=== PATIENT | female | born 1950 | race Caucasian/White ===

== ENCOUNTER 2017-01-29 14:00 | Inpatient (IN) | payer MEDICARE, BC ==
[~2017-01-29] VITALS: Ht 167.6 cm; Wt 75.2 kg
--- NOTE | ~2017-01-29 | DS ---
PATIENT'S NAME: AMBAR KIDD [facility] AGE: 66 Y [address] ROOM: [place] [address] LOCATION: G3N ADMIT DATE: 02/04/2017 Discharge Summary DISCHARGE DATE: 02/06/2017 FAMILY PHYSICIAN: Florencio Herrera MD ATTENDING PHYSICIAN: Fabian Mcpherson PRIMARY DIAGNOSIS: Degenerative joint disease of the right knee. SECONDARY DIAGNOSES: 1. Hypertension. 2. History of idiopathic peripheral neuropathy. 3. History of malignant hypertensive heart and kidney disease. 4. Osteoporosis. 5. Hypercholesterolemia. PROCEDURE PERFORMED: Right total knee arthroplasty with computer navigation. HISTORY: The patient is a 66-year-old female, who presents with advanced right knee degenerative joint disease and associated severely compromised activities of daily living. The patient has decided to proceed with total knee arthroplasty after having been thoroughly counseled regarding the risks, benefits, limitations and alternatives. Please refer to the outpatient clinic notes and admission history and physical for this patient. HOSPITAL COURSE: The patient underwent a right total knee arthroplasty on 02/04/2017 without complications. Spinal anesthesia plus adductor canal block plus periarticular local anesthesia was utilized. The patient received 24 hours of perioperative prophylactic antibiotics and remained hemodynamically stable, neurovascularly intact throughout the entire hospital course. He postoperative prophylactic deep venous thrombosis prophylaxis consisted of Xarelto, early mobilization and pneumatic compression devices. Daily physical therapy for gait training, transfer training range of motion and quadriceps isometric exercises were received. The patient progressed well in physical therapy. On the date of discharge, 02/06/2017, the incision at the knee was healing well and showed no signs of infection. DISPOSITION: Home. DISCHARGE ACTIVITY: The patient is to bear weight as tolerated with range of motion and quadriceps isometric exercises as instructed. The operative extremity is to be elevated at least 90% of the day. There is to be sterile 4x4 gauze dressings to the incision daily. Dr. Mcpherson is to be notified immediately if there is any increased pain, fevers, chills erythema or drainage. PATIENT'S NAME: AMBAR KIDD [facility] AGE: 66 Y [address] ROOM: [place] [address] LOCATION: G3N ADMIT DATE: 02/04/2017 Discharge Summary DISCHARGE DATE: 02/06/2017 FAMILY PHYSICIAN: Florencio Herrera MD ATTENDING PHYSICIAN: Fabian Mcpherson DISCHARGE MEDICATIONS: 1. Xarelto 10 mg, take tab p.o. daily for DVT prevention. 2. Oxycodone 5, take 1-2 tablets every 4 hours as needed for pain. 3. Celebrex 200 mg, take 1 tab p.o. p.r.n. pain. FOLLOWUP: Followup appointment is to be with Dr. Mcpherson on Friday February 12, 2016, for initial postoperative evaluation. EMILE CORDON FOR FABIAN MCPHERSON MD TLB/modl /[id number] d: 02/13/17 0339 t: 02/18/17 0926, DISCHARGE SUMMARY
--- NOTE | ~2017-01-29 | OR ---
PATIENT'S NAME: AMBAR KIDD [facility] AGE: 66 Y [address] ROOM: [place] [address] LOCATION: [facility] ADMIT DATE: 02/04/2017 OR/Procedure Report DISCHARGE DATE: FAMILY PHYSICIAN: Florencio Herrera MD ATTENDING PHYSICIAN: FABIAN MCPHERSON SURGEON: Fabian Mcpherson MD SERVICE STATION ATTENDANT: 1. EMLIE Saldivar. 2. Ede Savage CST/JOSE. DATE OF PROCEDURE: 02/04/2017 PRE-OP DIAGNOSIS: Degenerative joint disease right knee. POST-OP DIAGNOSIS: Degenerative joint disease right knee. OPERATION: Right total knee arthroplasty with computer navigation. ANESTHESIA: Spinal anesthesia plus adductor canal block plus periarticular local anesthesia (ropivacaine with epinephrine and Toradol). ESTIMATED BLOOD LOSS: Less than 10 mL. DRAIN: None. SPECIMEN: None. COMPLICATIONS: None. IMPLANT SYSTEM: Darlyn Triathlon Size 5 right posterior stabilized femoral component Size 4 universal modular tibial baseplate 11 mm posterior stabilized size 4 X3 tibial polyethylene insert 32 mm Oval X3 patella component (triple pegged). INDICATIONS FOR SURGERY: The patient is a 66-year-old female who presents with advanced right knee degenerative joint disease and associated severely compromised activities of daily living. The patient has decided to proceed with knee replacement after having been thoroughly counseled regarding the associated risks, benefits, and limitations. We have specifically reviewed the risks and implications of infection, deep venous thrombosis, pulmonary embolism, mortality, neurovascular complications, blood transfusion (and associated potential for disease transmission or transfusion reaction), stiffness, instability, mechanical deterioration of the components (due to wear and or loosening), and the potential need for revision. We have also emphasized the importance of active involvement and compliance with post- operative physical therapy as a means of optimizing range of motion and [facility]GE: 66 Y [address] ROOM: [address] [address] LOCATION: [facility] ADMIT DATE: 02/04/2017 OR/Procedure Report DISCHARGE DATE: FAMILY PHYSICIAN: Florencio Herrera MD ATTENDING PHYSICIAN: FABIAN MCPHERSON functional recovery. Informed consent has been granted. DESCRIPTION OF PROCEDURE: The patient was positioned supine after administration of anesthesia and prophylactic antibiotics. A well-padded pneumatic tourniquet was placed around the right proximal thigh, and the right lower extremity was prepped and draped with vigilant sterile technique. The patient's name as well as the intended operative side and procedure were confirmed with a verbal time-out involving myself, the circulating nurse, the scrub nurse, and the anesthesiologist. Examination under anesthesia demonstrated a large effusion. There were no active skin lesions or masses. There was no erythema. There was no abnormal warmth. Range of motion under anesthesia was from a 20-degree flexion contracture to 120 degrees of flexion. There was no ligamentous insufficiency. The right lower extremity was elevated and exsanguinated with an Esmarch wrap, and the pneumatic tourniquet was inflated to 300mmHg. The knee was approached through a longitudinal midline incision. A medial parapatellar arthrotomy was performed and the patella was everted. Examination of the joint space demonstrated a large amount of benign-appearing translucent synovial fluid. There was no synovitis. There were no loose bodies. There was a small osteophyte at the intercondylar notch. The cruciate ligaments were intact. There was full-thickness loss of articular cartilage involving 95% of the medial femoral condyle and the anteromedial 2/3rd of the medial tibial plateau. There was a 1 cm diameter region of full-thickness articular cartilage loss (with an associated unstable full-thickness flap of articular cartilage) at the central aspect of the lateral femoral condyle. There were intermixed grade 3 and grade 4 degenerative changes throughout the inferomedial 2/3rd of the patella. There were intermixed grade 3 and grade 4 degenerative changes throughout the majority of the femoral trochlea. There was a 1 cm osteophyte at the cephalad aspect of the femoral trochlea. There was a 1 x 2 cm osteophyte at the lateral margin of the patella. There were small osteophytes at the remainder of the circumference of the patella as well as at the medial and lateral margins of the femoral trochlea, lateral margin of the lateral femoral condyle, and lateral tibial plateau. There was moderate inner perimeter tearing of the medial and lateral menisci. There was a partial discoid lateral meniscus. Remnants of the menisci and cruciate ligaments were excised. The Lumate navigation femoral tracker was pinned in place at the distal aspect of the femoral trochlea. Absence of motion between the femur and the tracking device was confirmed manually and visually. Femoral osseous landmarks were obtained in order to calibrate the computer navigation system. Landmarks PATIENT'S NAME: AMBAR KIDD [facility] AGE: 66 Y [address] ROOM: [id number] [place], [place] [address] LOCATION: [facility] ADMIT DATE: 02/04/2017 OR/Procedure Report DISCHARGE DATE: FAMILY PHYSICIAN: Florencio Herrera MD ATTENDING PHYSICIAN: FABIAN MCPHERSON included the center of rotation of the ipsilateral hip, the center-point of the distal femur, the femoral AP axis, 57 points on the medial femoral condyle articular surface, and 57 points on the lateral femoral condyle articular surface. The Trailerpop computer navigation system was subsequently utilized to position the distal femoral resection block such that the distal femoral resection was performed perfectly perpendicular to the femoral mechanical axis. The distal femoral resection was performed with a [employer] oscillating saw. The Trailerpop computer navigation tibial tracker was pinned in place at the anterior aspect of the tibial plateau. Absence of motion between the tibia and the tracking device was confirmed manually and visually. Tibial osseous landmarks were obtained in order to calibrate the computer navigation system. Landmarks included the center-point of the tibial plateau, the AP tibial axis, 57 points on the medial tibial plateau articular surface, 57 points on the lateral tibial plateau articular surface, the medial malleolus, and the lateral malleolus. The Trailerpop computer navigation system was subsequently utilized to position the proximal tibial resection block such that the proximal tibial resection was performed perfectly perpendicular to the tibial mechanical axis. The proximal tibial resection was performed with a [employer]igator[employer] Precision oscillating saw. Perpendicularity of the tibial resection with respect to the tibial shaft axis was reconfirmed by inserting a spacer- block attached to an extramedullary guide tiffanie. External rotation of the anterior and posterior femoral resections was set parallel to the epicondylar axis and carefully adjusted in order to create a rectangular flexion gap. The box resection was performed with a reciprocating saw. Anterior and posterior chamfer resections were performed with the oscillating saw. Posterior condyle osteophytes were excised with an osteotome. All other osteophytes were excised with a rongeur. Resection of all remnants of the menisci was reconfirmed. Flexion and extension gaps were confirmed to be symmetric and well balanced with a spacer-block technique. The patella resection was performed with an oscillating saw such that the composite thickness of the reconstructed patella was equivalent to the thickness of the kluti kaah patella. Patella tracking was optimal and there was no need for a lateral retinacular release. All trial components were removed and all prepared osseous surfaces were thoroughly irrigated with pulsatile saline lavage and dried prior to cementing all three components in a single stage using Petty Simplex cement containing pre-mixed tobramycin. All extruded excess cement was removed. The entire joint space was thoroughly inspected and thoroughly irrigated with bacteriostatic pulsatile saline lavage to assure that there was no residual debris of any sort. PATIENT'S NAME: AMBAR KIDD [facility] AGE: 66 Y [address] ROOM: [address] [address] LOCATION: [facility] ADMIT DATE: 02/04/2017 OR/Procedure Report DISCHARGE DATE: FAMILY PHYSICIAN: Florencio Herrera MD ATTENDING PHYSICIAN: FABIAN MCPHERSON Final range of motion was from full extension (with no passive hyperextension) to 130 degrees of flexion. Patella tracking was reconfirmed to be optimal. There was excellent anteroposterior stability at 90 degrees of flexion. There was 0 mm of medial lift-off to valgus stress in full extension. There was 1 mm of lateral lift-off to varus stress in full extension. The arthrotomy was closed with multiple simple and [id number] interrupted #1 Vicryl. Subcutaneous tissues were thoroughly re-irrigated with bacteriostatic pulsatile saline lavage. Subcutaneous tissues were re- approximated with simple buried interrupted #0 Vicryl sutures. The skin was closed with simple buried interrupted 2-0 Vicryl sutures followed by surgical kirt. The dressing consisted of Xeroform gauze, 4x4 gauze, ABD pads and two 6-inch Alexandr Wraps. There were no intra-operative complications. It should be noted that the physician's client account assistant played an active, integral role throughout this entire operation. By providing expert retraction, they greatly facilitated and expedited safe and effective exposure of the distal femur, proximal tibia and patella for preparation and implantation of the components. They were also actively involved in the patient's positioning, prepping and draping, as well as wound closure. MD JESSE HOOD/modl /[id number] d: 02/04/172055 t: 02/06/172150, OPERATIVE SUMMARY
[~2017-01-29 14:00] MED LIST: AMOXICILLIN500 M1 PO; COLACE100 MG PO; CRESTOR5 MG PO; FOSAMAX70 MG PO; LOPRESSOR25 MG PO; MELOXICAM15 MG PO; MIRALAX17 GM PO; NEURONTIN300 MG PO; ROXICODONE 5MG (5 MG PO; TYLENOL EXTRA500 MG PO; VALIUM5 MG PO; XARELTO10 MG PO
[2017-01-29] MEDS ORDERED: ULTRAM50 MG PO (16:28)
--- NOTE | 2017-02-05 04:18 | NUR ---
Significant Event: 1 ASSIST WITH TRANSFERS. VOIDS WITHOUT DIFFICULTY. DRESSING IS CLEAN, DRY AND INTACT. CSM WNL. OXYCODONE AT 0235. Follow up:
--- NOTE | 2017-02-05 12:30 | NUR ---
Introduced self/role to patient. She lives with her in [place]. Has all her DME from previous surgery. will be there to help and a daughter is coming. Denied any barriers to go home or at home. She is planning to go home tomorrow. Added my name to her marker board.
--- NOTE | 2017-02-05 17:10 | NUR ---
Significant Event: SHANE DRESSING TO R) KNEE C/D/I. CSM ASSESSMENTS WNL. EZ WRAP TO R) KNEE. AMBULATES TO BATHROOM AND UP TO CHAIR WITH SBA, USE OF WALKER/GAIT BELT, GAIT STEADY. BILATERAL KNEE HIGH RASHIDA HOSE AND FOOT PUMPS ON. PATIENT VOIDING APPROXIMATELY 100ML AT A TIME, ORDER RECEIVED FOR PVR, AT 1320 PATIENT VOIDED 100ML, PVR 473ML, THEN VOIDED ANOTHER 100ML. AT 1500 PATIENT VOIDED 100ML, PVR 367ML, Christiana PASTRANA CUSTOMER RESPONSE REPRESENTATIVE INFORMED AND ORDER RECEIVED TO STRAIGHT CATH. 1600 PATIENT STRAIGHT CATH FOR 500ML. PAIN WELL CONTROLLED WITH OXYCODONE 1 TAB GIVEN LAST AT 1617 AND ROUTINE TYLENOL EXTRA STRENGTH WHICH WILL BE GIVEN AROUND 1730. ZOFRAN GIVEN AT 0950 FOR C/O NAUSEA, WITH RELIEF. PLEASANT AND COOPERATIVE WITH CARES. Follow up:
--- NOTE | 2017-02-06 04:49 | NUR ---
Significant Event: Alert/oriented x3. Plans to go home today. # voids - 725 mls. 1 assist ambulation. Pain controlled with Roxicodone at 2152 and 0130; Morphine 1 mg IVP at 0338; Toradol at 0338. VSS. CSM WNL. Dressing C/D/I. EZ wrap in place. Teds removed HS. Follow up:
[2017-02-06] MEDS ORDERED: TYLENOL EXTRA500 MG PO (11:30)
[2017-02-06] MEDS ORDERED: COLACE100 MG PO (11:31)
[2017-02-06] MEDS ORDERED: NEURONTIN300 MG PO (11:32)
[2017-02-06] MEDS ORDERED: MIRALAX17 GM PO (11:33)
[2017-02-06] MEDS ORDERED: XARELTO10 MG PO (11:34)
[2017-02-06] MEDS ORDERED: ROXICODONE5 MG PO (11:36)
[2017-02-06] MEDS ORDERED: CELEBREX200 MG PO (11:37)
--- NOTE | 2017-02-06 12:37 | NUR ---
PT GIVEN DISCHARGE INSTRUCTIONS AND VOICES UNDERSTANDING. MEDICATIONS AND DRESSINGS REVIEWED. ICE PACKS AND DRESSINGS SENT WITH PT. ESCORTED TO THE FRONT DOOR BY SUGAR LABORATORY ASSISTANT. AT PT'S SIDE.
== END 2017-02-06 12:30 | disposition disaster alternative care site (69) | DRG 470 ==
LOC: G3N 02-04 11:28
PROVIDERS: ADMIT Orthopaedic Surgery
PROC: XR2G021 Monitoring of Right Knee Joint using Intraoperative Knee Replacement Sensor, Open Approach, New Technology Group 1 (ICD-10-PCS; principal; 2017-02-04)
PROC: 0SRC0J9 Replacement of Right Knee Joint with Synthetic Substitute, Cemented, Open Approach (ICD-10-PCS; principal; 2017-02-04)
DX: M17.11 Unilateral primary osteoarthritis, right knee (principal); I10 Essential (primary) hypertension; I25.10 Atherosclerotic heart disease of native coronary artery without angina pectoris; E78.5 Hyperlipidemia, unspecified; E78.00 Pure hypercholesterolemia, unspecified; M81.0 Age-related osteoporosis without current pathological fracture; Z79.82 Long term (current) use of aspirin; R33.9 Retention of urine, unspecified
CPT/HCPCS: A9270; C1713; C1776; J0690; J1100; J1885; J2001; J2250; J2270; J2405; J2795; J7120